=== PATIENT | female | born 1950 | race Two or more races ===

== ENCOUNTER 2023-09-28 10:55 | Outpatient (AMB) | payer MEDICARE, SELFPAY ==
--- NOTE | 2023-09-28 11:07 | HO.NEPHOV ---
HPI HPI Comments History of Present Illness Details I had the privilege of seeing Sera in follow-up of her chronic kidney disease on a background of hypertension. She has history of longstanding hypertension for close to 25 years. She has been taking prednisone for her rheumatological disorders. Her blood sugar control is labile but stable. She is on LANE-inhibitor. She denies any chest pain, shortness of breath, proximal nocturnal dyspnea, orthopnea, pedal edema or orthostatic symptoms. She is known to have proteinuria. Her oldest sister has history of ESRD. There were no new active complaints at the time this office visit. [facility] Medical History (Updated 09/28/23 @ 12:55 by Daryl Black MD) Hyperlipidemia Malaise and fatigue Iron deficiency anemia Hypothyroidism Essential (primary) hypertension Type 2 diabetes mellitus Surgical History Hx of laparoscopic gastric banding History of hysterectomy Family History Mother Hypertension Stroke Heart disease Father Cancer Sister Cancer Diabetes Hypertension Kidney disease Brother Cancer Diabetes Social History Alcohol intake: never Patient Tobacco Use Status: Never used Tobacco Vital Signs 09/28/23 11:09 Height 5 ft 3 in Weight 255 lb 4 oz BMI 45.2 BP 98/60 Blood Pressure Location Lt brachial Position Sitting Pulse 76 Pulse Source Pulse Oximeter Pulse Oximetry (%) 96 Oxygen Delivery Method Room Air Physical Exam Vital Signs: Last Vital Signs Pulse 76 09/28/23 11:09 BP 98/60 09/28/23 11:09 Pulse Ox 96 09/28/23 11:09 Oxygen Delivery Method Room Air 09/28/23 11:09 BMI result Body Mass Index 45.2 Const Other: On O2 General: comfortable and no acute distress Orientation/consciousness: patient oriented x3 HEENT Head: Yes normocephalic Mouth: Normal oral and palatal mucosa present Eyes EOM: EOMs intact bilaterally Neck Neck: Yes supple Resp Auscultation: clear to auscultation bilaterally Cardio Jugular venous distension: no JVD Rate: regular rate GI Palpation (GI): Soft to palpation Auscultation: normal bowel sounds General: Yes no CVA tenderness Back/Spine/Pelvis Back: no CVA tenderness Skin General skin exam: no rashes or lesions noted Neuro General: patient oriented x3 and moves all extremities Extrem General: Yes no pedal edema Assessment & Plan Assessment & Plan (1) CKD (chronic kidney disease) stage 3, GFR 30-59 ml/min: Code(s): N18.30 - Chronic kidney disease, stage 3 unspecified Qualifiers: Chronic kidney disease stage 3 subtype: stage 3a (GFR 45-59) Qualified Code(s): N18.31 - Chronic kidney disease, stage 3a (2) Essential (primary) hypertension: Code(s): I10 - Essential (primary) hypertension Plan Sera has longstanding hypertension and 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 Her blood pressure has been on the low side and she has intermittent orthostatic symptoms. She has not had any blood work done for a good few months. I reduced her lisinopril to 20 mg daily. She was encouraged to keep up with a low-sodium diet, maintain good hydration and avoid nonsteroidal anti-inflammatories. Her past renal ultrasound did not show any obstruction but just renal cyst. I have ordered blood work in follow-up and plan to initiate her on Jardiance or Farxiga at the next office visit. All questions answered. Follow-up appointment given. Orders: Orders Calcium Today N18.30 - Chronic kidney disease, stage 3 unspecified Electrolytes Today N18.30 - Chronic kidney disease, stage 3 unspecified Blood Urea Nitrogen Today N18.30 - Chronic kidney disease, stage 3 unspecified Creatinine Today N18.30 - Chronic kidney disease, stage 3 unspecified Coding Level of Care Code Est Pt Level 4 (75882) Diagnoses Stage 3a chronic kidney disease N18.31 Chronic kidney disease stage 3 subtype: stage 3a (GFR 45-59) Essential (primary) hypertension I10 Results Reviewed Nephrology Results: No Data to Display
[2023-09-28 11:09] VITALS: BP 98/60; PULSE 76; O2SAT 96; BMI 45.2
== END 2023-09-28 11:46 | disposition home or self-care (01) ==
PROVIDERS: PCP Internal Medicine; Visit Provider Internal Medicine Nephrology
DX: N18.31 Chronic kidney disease, stage 3a (principal); I10 Essential (primary) hypertension
CPT/HCPCS: 99214

== ENCOUNTER → 2023-09-28 10:55 | Outpatient (BNVA) | payer MEDICARE, SELFPAY | PROVIDERS: PCP Internal Medicine; Visit Provider Internal Medicine Nephrology | DX: I12.9 Hypertensive chronic kidney disease with stage 1 through stage 4 chronic kidney disease, or unspecified chronic kidney disease (principal); N18.31 Chronic kidney disease, stage 3a; Z79.899 Other long term (current) drug therapy | CPT/HCPCS: 99212 ==

== ENCOUNTER 2023-10-24 08:50 | Outpatient (REF) | payer MEDICARE, SELFPAY ==
[2023-10-24 14:05] LABS: Anion Gap 13 (12-20); Blood Urea Nitrogen 35 mg/dL (9-16); Calcium 9.5 mg/dL (8.4-10.2); Carbon Dioxide 27 mmol/L (22-29); Chloride 107 mmol/L (96-108); Estimated Glomerular Filt Rate 22; Potassium 4.3 mmol/L (3.3-5.1); Sodium 143 mmol/L (135-145)
== END 2023-10-24 08:51 | disposition home or self-care (01) ==
LOC: HO.HKASLDS 08:50
PROVIDERS: Visit Provider Internal Medicine Nephrology
DX: N18.30 Chronic kidney disease, stage 3 unspecified (principal)
CPT/HCPCS: 36415; 80051; 82310; 82565; 84520

== ENCOUNTER → 2023-10-31 11:15 | Outpatient (BNVA) | payer MEDICARE, SELFPAY | PROVIDERS: PCP Internal Medicine; Visit Provider Internal Medicine Nephrology | DX: I12.9 Hypertensive chronic kidney disease with stage 1 through stage 4 chronic kidney disease, or unspecified chronic kidney disease (principal); N18.31 Chronic kidney disease, stage 3a; D17.0 Benign lipomatous neoplasm of skin and subcutaneous tissue of head, face and neck | CPT/HCPCS: 99212 ==

== ENCOUNTER 2023-10-31 11:24 | Outpatient (AMB) | payer MEDICARE, SELFPAY ==
[2023-10-31 11:23] VITALS: BP 104/70; PULSE 80; O2SAT 95; BMI 45.7
--- NOTE | 2023-10-31 11:23 | HO.NEPHOV ---
HPI HPI Comments History of Present Illness Details I had the privilege of seeing Sera in follow-up of her chronic kidney disease on a background of hypertension. She has history of longstanding hypertension for close to 25 years. She has been taking prednisone for her rheumatological disorders. Her blood sugar control is labile but stable. She has been on LANE-inhibitor, the dose of which has been reduced to 20 mg at the last visit. She denies any chest pain, shortness of breath, proximal nocturnal dyspnea, orthopnea, pedal edema or orthostatic symptoms. She is known to have proteinuria. Her oldest sister has history of ESRD. There were no new active complaints at the time this office visit. [facility] Medical History (Updated 10/31/23 @ 11:50 by Daryl Black MD) Hyperlipidemia Malaise and fatigue Iron deficiency anemia Hypothyroidism Essential (primary) hypertension Type 2 diabetes mellitus Surgical History Hx of laparoscopic gastric banding History of hysterectomy Family History Mother Hypertension Stroke Heart disease Father Cancer Sister Cancer Diabetes Hypertension Kidney disease Brother Cancer Diabetes Social History Alcohol intake: never Patient Tobacco Use Status: Never used Tobacco Vital Signs 10/31/23 11:23 Height 5 ft 3 in Weight 258 lb BMI 45.7 BP 104/70 Blood Pressure Location Lt brachial Position Sitting Pulse 80 Pulse Source Pulse Oximeter Pulse Oximetry (%) 95 Oxygen Delivery Method Room Air Physical Exam Vital Signs: Last Vital Signs Pulse 80 10/31/23 11:23 BP 104/70 10/31/23 11:23 Pulse Ox 95 10/31/23 11:23 Oxygen Delivery Method Room Air 10/31/23 11:23 BMI result Body Mass Index 45.7 Const General: comfortable and no acute distress Orientation/consciousness: patient oriented x3 HEENT Head: Yes normocephalic Mouth: Normal oral and palatal mucosa present Eyes EOM: EOMs intact bilaterally Neck Neck: Yes supple Resp Auscultation: clear to auscultation bilaterally Cardio Jugular venous distension: no JVD Rate: regular rate GI Palpation (GI): Soft to palpation Auscultation: normal bowel sounds General: Yes no CVA tenderness Back/Spine/Pelvis Back: no CVA tenderness Skin General skin exam: no rashes or lesions noted Neuro General: patient oriented x3 and moves all extremities Extrem General: Yes no pedal edema Assessment & Plan Assessment & Plan (1) Essential (primary) hypertension: Code(s): I10 - Essential (primary) hypertension (2) CKD (chronic kidney disease) stage 3, GFR 30-59 ml/min: Code(s): N18.30 - Chronic kidney disease, stage 3 unspecified Qualifiers: Chronic kidney disease stage 3 subtype: stage 3a (GFR 45-59) Qualified Code(s): N18.31 - Chronic kidney disease, stage 3a (3) Lipoma: Code(s): D17.9 - Benign lipomatous neoplasm, unspecified Qualifiers: Lipoma location: neck Qualified Code(s): D17.0 - Benign lipomatous neoplasm of skin and subcutaneous tissue of head, face and neck Claus Zamora has longstanding hypertension and 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 Her blood pressure has been on the low side and she has intermittent orthostatic symptoms. She had a recent serum creatinine of 2.1 now . I held her lisinopril . She was encouraged to keep up with a low-sodium diet, maintain good hydration and avoid nonsteroidal anti-inflammatories. Her past renal ultrasound did not show any obstruction but just renal cyst. I have ordered blood work in follow-up and plan to initiate her on Jardiance or Farxiga with time. She has a lipoma on the nape of the neck for which she is going to see a surgeon. All questions answered. Follow-up appointment given. Orders: Orders Creatinine Today I10 - Essential (primary) hypertension, N18.30 - Chronic kidney disease, stage 3 unspecified Creatinine 6 Weeks I10 - Essential (primary) hypertension, N18.30 - Chronic kidney disease, stage 3 unspecified Electrolytes 6 Weeks I10 - Essential (primary) hypertension, N18.30 - Chronic kidney disease, stage 3 unspecified Blood Urea Nitrogen Today I10 - Essential (primary) hypertension, N18.30 - Chronic kidney disease, stage 3 unspecified Electrolytes Today I10 - Essential (primary) hypertension, N18.30 - Chronic kidney disease, stage 3 unspecified Blood Urea Nitrogen 6 Weeks I10 - Essential (primary) hypertension, N18.30 - Chronic kidney disease, stage 3 unspecified Referrals General Surgery Referral D17.9 - Benign lipomatous neoplasm, unspecified Coding Level of Care Code Est Pt Level 4 (95211) Diagnoses Essential (primary) hypertension I10 Stage 3a chronic kidney disease N18.31 Chronic kidney disease stage 3 subtype: stage 3a (GFR 45-59) Lipoma of neck D17.0 Lipoma location: neck Results Reviewed Nephrology Results: Sodium 143 mmol/L (135-145) 10/24/23 Potassium 4.3 mmol/L (3.3-5.1) 10/24/23 Chloride 107 mmol/L (96-108) 10/24/23 Carbon Dioxide 27 mmol/L (22-29) 10/24/23 BUN 35 mg/dL (9-16) H 10/24/23 Creatinine 2.18 mg/dL (0.5-1.4) H 10/24/23 Calcium 9.5 mg/dL (8.4-10.2) 10/24/23
== END 2023-10-31 11:55 | disposition home or self-care (01) ==
PROVIDERS: PCP Internal Medicine; Visit Provider Internal Medicine Nephrology
DX: I10 Essential (primary) hypertension (principal); N18.31 Chronic kidney disease, stage 3a; D17.0 Benign lipomatous neoplasm of skin and subcutaneous tissue of head, face and neck
CPT/HCPCS: 99214

== ENCOUNTER 2023-11-15 10:29 | Outpatient (AMB) | payer MEDICARE, SELFPAY ==
--- NOTE | 2023-11-15 10:55 | A.OFFVIS_ITS ---
Intake Vital Signs 11/15/23 11:02 Height 5 ft 3 in Weight 257 lb BMI 45.5 BP 145/65 H Blood Pressure Location Rt brachial Position Sitting Pulse 99 Intake Visit Reasons: Lipoma~ Lt post neck Intake Note: This patient presents for an assessment for Lipoma of the left posterior neck. Pt c/o; reports feeling pressure sensation, left posterior neck. 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 Accompanied by: Self / Same As Patient Allergies Egg Derived Allergy (Verified 11/15/23 11:01) Unknown Iodinated Contrast Media Allergy (Verified 11/15/23 11:01) Unknown Medication List - Last Reconciled 11/15/23 by Yony Bronson MD albuterol sulfate 90 mcg/actuation inhalation amlodipine 5 mg PO DAILY aspirin 81 mg PO DAILY atorvastatin 40 mg PO DAILY makefvmninx-eaxzhuiwq-glretxqz 100-62.5-25 mcg (Trelegy Ellipta) 1 ea inhalation DAILY hydroxychloroquine 200 mg PO BID insulin glargine (Lantus Solostar U-100 Insulin) units subcut levothyroxine mcg PO metoprolol succinate ER 100 mg PO DAILY metoprolol succinate ER 50 mg PO DAILY omeprazole 20 mg PO DAILY pen needle, diabetic (BD Ultra-Fine Mini Pen Needle) As directed prednisone 10 mg PO DAILY prednisone 3 mg PO DAILY sertraline 150 mg PO DAILY torsemide 20 mg PO DAILY HPI Lipoma~ Lt post neck HPI Details 73-year-old female referred for a lipoma on the posterior neck. She has noticed this lump on the posterior neck to the left about 3 years. This has been increasing in size. She says that has been causing her discomfort and wants this removed. She denies any drainage or skin changes. She has known COPD and uses O2 supplementation frequently. [facility] Medical History Lipoma of neck Hyperlipidemia Malaise and fatigue Iron deficiency anemia Hypothyroidism Essential (primary) hypertension Type 2 diabetes mellitus Surgical History Hx of laparoscopic gastric banding History of hysterectomy Family History Mother Hypertension Stroke Heart disease Father Cancer Sister Cancer Diabetes Hypertension Kidney disease Brother Cancer Diabetes Social History Alcohol intake: never Patient Tobacco Use Status: Never used Tobacco Review of Systems Const Details: Using a cane to ambulate Denies chills and Denies fever(s) Card Denies chest pain, Reports dyspnea and Reports dyspnea on exertion Resp Denies cough, Reports dyspnea and Reports dyspnea on exertion GI Denies hematochezia and Denies change in bowel habits Denies hematuria Musc Denies back pain and Denies limited range of motion Neuro Denies focal weakness and Denies convulsions Psych Denies depression and Denies mood swings Physical Exam Const Other: Morbidly obese, appears a little short of breath, using a cane to ambulate General: comfortable and no acute distress Orientation/consciousness: patient oriented x3 Neck Other: Left posterior neck - lipomatous mass, about 4 cm in diameter, mobile, well- defined Neck: Yes no lymphadenopathy Resp Auscultation: clear to auscultation bilaterally Cardio Rhythm: regular rhythm GI Palpation (GI): Soft to palpation, nontender and no guarding Neuro General: patient oriented x3 Assessment & Plan Assessment & Plan (1) Lipoma of neck: Code(s): D17.0 - Benign lipomatous neoplasm of skin and subcutaneous tissue of head, face and neck Plan: I explained to her the technique of excision. I reviewed the risks including but not limited to bleeding and infections, as well as the benefits and alternatives. She understands and wants to proceed. She says she wants this done under local anesthesia. This will be scheduled at the minor procedure room. Coding Level of Care Code New Pt Level 3 (60125) Diagnoses Lipoma of neck D17.0
[2023-11-15 11:02] VITALS: BP 145/65; PULSE 99; BMI 45.5
== END 2023-11-15 11:09 | disposition home or self-care (01) ==
PROVIDERS: PCP Internal Medicine; Visit Provider Surgery
DX: D17.0 Benign lipomatous neoplasm of skin and subcutaneous tissue of head, face and neck (principal)
CPT/HCPCS: 99203

== ENCOUNTER → 2023-11-15 10:29 | Outpatient (BNVA) | payer MEDICARE, SELFPAY | PROVIDERS: PCP Internal Medicine; Visit Provider Surgery | DX: D17.0 Benign lipomatous neoplasm of skin and subcutaneous tissue of head, face and neck (principal) | CPT/HCPCS: 99202 ==

== ENCOUNTER 2023-11-29 10:30 | Outpatient (REF) | payer MEDICARE, SELFPAY ==
[2023-11-29 10:39] VITALS: BP 153/66; PULSE 77; RESP 20; TEMP 36.4; O2SAT 92; BMI 44.3
--- NOTE | 2023-11-29 11:02 | W.PM.OPN ---
Operative Note Operative Note Date of Service: 11/29/23 Narrative: Preop diagnosis: Lipoma, posterior neck Postop diagnosis: Lipoma,posterior neck Procedure: Excision of lipoma posterior neck under local anesthesia Surgeon: Yony Bronson MD The patient is a 73 year female with a lipomatous mass on the posterior neck. This was about a 2.5 cm lipoma. She understood the technique of excision under local anesthesia and was aware of the risks, benefits, and alternatives. She was brought to the minor procedure room. She was placed in prone position. The neck was hyperextended to expose the lipoma on the posterior neck. This area was prepped and draped. Lidocaine 1% was used for local anesthesia. A surgical time-out had been done. I then made an incision on the skin transversely overlying the lipoma. This was made using blade 15. This carried down through the full-thickness of the skin until a lipomatous masses this visualized. I sharply dissected the lipoma off of the rest of the subcutaneous layer. This lipoma was very immature and seemed to fall apart easily. We were able to remove the lipoma from the area completely. We closed the incision with full-thickness nylon 3-0 interrupted sutures. Dressings were applied. The procedure was completed The patient tolerated the procedure well. There were no immediate complications. She was given wound care instructions. She will be seen in the office for removal sutures. There was minimal blood loss.
== END 2023-11-29 10:31 | disposition home or self-care (01) ==
LOC: HO.MS 10:30
PROVIDERS: Visit Provider Surgery
PROC: (CPT 11423; principal; 2023-11-29 10:30)
DX: D17.9 Benign lipomatous neoplasm, unspecified (principal)
CPT/HCPCS: 11423; 88304

== ENCOUNTER → 2023-11-29 10:30 | Outpatient (BNV) | payer MEDICARE, SELFPAY | PROVIDERS: Visit Provider Surgery | DX: D17.0 Benign lipomatous neoplasm of skin and subcutaneous tissue of head, face and neck (principal) | CPT/HCPCS: 21555 ==

== ENCOUNTER 2023-12-13 10:32 | Outpatient (AMB) | payer MEDICARE, SELFPAY ==
--- NOTE | 2023-12-13 10:32 | A.OFFVIS_ITS ---
Intake Visit Reasons: S/P excision lipoma Lt. posterior neck Intake Note: This patient presents for a post-op S/P excision lipoma Lt. posterior neck. Pt c/o; reports no complaints. Manager Emergency Department Required: No Accompanied by: Self / Same As Patient Allergies Egg Derived Allergy (Verified 12/13/23 10:41) Unknown Iodinated Contrast Media Allergy (Verified 12/13/23 10:41) Unknown HPI HPI S/P excision lipoma Lt. posterior neck: Details: She underwent excision of a lipoma from the neck last November 28 under local anesthesia. She tolerated the procedure well. She currently denies complaints. [facility] Medical History Lipoma of neck Hyperlipidemia Malaise and fatigue Iron deficiency anemia Hypothyroidism Essential (primary) hypertension Type 2 diabetes mellitus Surgical History Status post excision of lipoma (~11/29/23) Hx of laparoscopic gastric banding History of hysterectomy Family History Mother Hypertension Stroke Heart disease Father Cancer Sister Cancer Diabetes Hypertension Kidney disease Brother Cancer Diabetes Social History Alcohol intake: never Patient Tobacco Use Status: Never used Tobacco Review of Systems Const Denies chills and Denies fever(s) Card Denies chest pain, Denies dyspnea and Denies dyspnea on exertion Resp Denies cough, Denies dyspnea and Denies dyspnea on exertion GI Denies hematochezia and Denies change in bowel habits Denies hematuria Musc Denies back pain and Denies limited range of motion Neuro Denies focal weakness and Denies convulsions Psych Denies depression and Denies mood swings Physical Exam Const General: comfortable and no acute distress Neck Other: Excision site is well healed, not infected Assessment & Plan Assessment & Plan (1) Lipoma of neck: Code(s): D17.0 - Benign lipomatous neoplasm of skin and subcutaneous tissue of head, face and neck Category: Medical Plan: Status post excision. Her incision is well healed. I removed all her sutures. Her path report shows a lipoma. She can follow up on a p.r.n. basis. Coding Level of Care Code Global (22752) Diagnoses Lipoma of neck D17.0
== END 2023-12-13 10:44 | disposition home or self-care (01) ==
PROVIDERS: PCP Internal Medicine; Visit Provider Surgery
DX: D17.0 Benign lipomatous neoplasm of skin and subcutaneous tissue of head, face and neck (principal)
CPT/HCPCS: 99024

== ENCOUNTER → 2023-12-13 10:32 | Outpatient (BNVA) | payer MEDICARE, SELFPAY | PROVIDERS: PCP Internal Medicine; Visit Provider Surgery | DX: D17.0 Benign lipomatous neoplasm of skin and subcutaneous tissue of head, face and neck (principal) | CPT/HCPCS: 99212 ==

== ENCOUNTER 2023-12-19 08:38 | Outpatient (REF) | payer MEDICARE, SELFPAY ==
[2023-12-19 17:30] LABS: Anion Gap 16 (12-20); Blood Urea Nitrogen 18 mg/dL (9-16); Carbon Dioxide 26 mmol/L (22-29); Chloride 101 mmol/L (96-108); Estimated Glomerular Filt Rate 25; Potassium 3.8 mmol/L (3.3-5.1); Sodium 139 mmol/L (135-145)
== END 2023-12-19 08:39 | disposition home or self-care (01) ==
LOC: HO.HKASLDS 08:38
PROVIDERS: Visit Provider Internal Medicine Nephrology
DX: I12.9 Hypertensive chronic kidney disease with stage 1 through stage 4 chronic kidney disease, or unspecified chronic kidney disease (principal); N18.30 Chronic kidney disease, stage 3 unspecified
CPT/HCPCS: 36415; 80051; 82565; 84520

== ENCOUNTER 2023-12-28 09:58 | Outpatient (AMB) | payer MEDICARE, SELFPAY ==
--- NOTE | 2023-12-28 10:00 | HO.NEPHOV_ITS ---
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 She has history of longstanding hypertension for close to 25 years. She has been taking prednisone for her rheumatological disorders. Her blood sugar control is labile but stable. She has been on LANE- inhibitor. She denies any chest pain, proximal nocturnal dyspnea, orthopnea or orthostatic symptoms. She is known to have proteinuria. Her oldest sister has history of ESRD. She has been having weight gain with edema with worsening SOB at that time. [facility] Medical History Lipoma of neck Hyperlipidemia Malaise and fatigue Iron deficiency anemia Hypothyroidism Essential (primary) hypertension Type 2 diabetes mellitus Surgical History Status post excision of lipoma (~11/29/23) Hx of laparoscopic gastric banding History of hysterectomy Family History Mother Hypertension Stroke Heart disease Father Cancer Sister Cancer Diabetes Hypertension Kidney disease Brother Cancer Diabetes Social History Alcohol intake: never Patient Tobacco Use Status: Never used Tobacco Physical Exam Vital Signs: Last Vital Signs Pulse 78 12/28/23 10:02 BP 130/72 12/28/23 10:02 Pulse Ox 96 12/28/23 10:02 Oxygen Delivery Method Room Air 12/28/23 10:02 BMI result Body Mass Index 46.5 Const General: comfortable and no acute distress Orientation/consciousness: patient oriented x3 HEENT Head: Yes normocephalic Mouth: Normal oral and palatal mucosa present Eyes EOM: EOMs intact bilaterally Neck Neck: Yes supple Resp Auscultation: clear to auscultation bilaterally Cardio Jugular venous distension: no JVD Rate: regular rate GI Palpation (GI): Soft to palpation Auscultation: normal bowel sounds General: Yes no CVA tenderness Back/Spine/Pelvis Back: no CVA tenderness Skin General skin exam: no rashes or lesions noted Neuro General: patient oriented x3 and moves all extremities Extrem General: Yes edema Results Reviewed Nephrology Results: Sodium 139 mmol/L (135-145) 12/19/23 Potassium 3.8 mmol/L (3.3-5.1) 12/19/23 Chloride 101 mmol/L (96-108) 12/19/23 Carbon Dioxide 26 mmol/L (22-29) 12/19/23 BUN 18 mg/dL (9-16) H 12/19/23 Creatinine 1.96 mg/dL (0.5-1.4) H 12/19/23 Calcium 9.5 mg/dL (8.4-10.2) 10/24/23 Assessment & Plan Assessment & Plan (1) CKD (chronic kidney disease) stage 3, GFR 30-59 ml/min: Code(s): N18.30 - Chronic kidney disease, stage 3 unspecified Category: Medical Qualifiers: Chronic kidney disease stage 3 subtype: stage 3a (GFR 45-59) Qualified Code(s): N18.31 - Chronic kidney disease, stage 3a (2) Essential (primary) hypertension: Code(s): I10 - Essential (primary) hypertension Category: Medical Plan Sera has longstanding hypertension and 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 Her blood pressure has been on the low side and she had intermittent orthostatic symptoms with serum creatinine going up to 2.1 which has improved after I held her lisinopril . She was encouraged to keep up with a low-sodium diet, maintain good hydration and avoid nonsteroidal anti-inflammatories. I increased her torsemide to 40 mg alternating with 20 mg every other day. Her past renal ultrasound did not show any obstruction but just renal cyst. I have ordered blood work in follow-up and plan to initiate her on Jardiance or Farxiga with time. All questions answered. Follow-up appointment given. Orders: Orders Creatinine Today I10 - Essential (primary) hypertension, N18.31 - Chronic kidney disease, stage 3a Blood Urea Nitrogen Today I10 - Essential (primary) hypertension, N18.31 - Chronic kidney disease, stage 3a Electrolytes Today I10 - Essential (primary) hypertension, N18.31 - Chronic kidney disease, stage 3a Coding Level of Care Code Est Pt Level 4 (42237) Diagnoses Stage 3a chronic kidney disease N18.31 Chronic kidney disease stage 3 subtype: stage 3a (GFR 45-59) Essential (primary) hypertension I10
[2023-12-28 10:02] VITALS: BP 130/72; PULSE 78; O2SAT 96; BMI 46.5
== END 2023-12-28 10:57 | disposition home or self-care (01) ==
PROVIDERS: PCP Internal Medicine; Visit Provider Internal Medicine Nephrology
DX: N18.31 Chronic kidney disease, stage 3a (principal); I10 Essential (primary) hypertension
CPT/HCPCS: 99214

== ENCOUNTER → 2023-12-28 09:58 | Outpatient (BNVA) | payer MEDICARE, SELFPAY | PROVIDERS: PCP Internal Medicine; Visit Provider Internal Medicine Nephrology | DX: I12.9 Hypertensive chronic kidney disease with stage 1 through stage 4 chronic kidney disease, or unspecified chronic kidney disease (principal); N18.31 Chronic kidney disease, stage 3a | CPT/HCPCS: 99212 ==

== ENCOUNTER 2024-01-30 10:13 | Outpatient (REF) | payer MEDICARE, SELFPAY ==
[2024-01-30 18:53] LABS: Anion Gap 15 (12-20); Blood Urea Nitrogen 23 mg/dL (9-16); Carbon Dioxide 25 mmol/L (22-29); Chloride 106 mmol/L (96-108); Estimated Glomerular Filt Rate 32; Potassium 3.3 mmol/L (3.3-5.1); Sodium 143 mmol/L (135-145)
== END 2024-01-30 10:14 | disposition home or self-care (01) ==
LOC: HO.HKASLDS 10:13
PROVIDERS: Visit Provider Internal Medicine Nephrology
DX: I10 Essential (primary) hypertension (principal); N18.30 Chronic kidney disease, stage 3 unspecified
CPT/HCPCS: 36415; 80051; 82565; 84520

== ENCOUNTER 2024-02-06 10:30 | Outpatient (AMB) | payer MEDICARE, SELFPAY ==
--- NOTE | 2024-02-06 10:46 | HO.NEPHOV_ITS ---
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 She has history of longstanding hypertension for close to 25 years. She has been taking prednisone for her rheumatological disorders. Her blood sugar control is labile but stable. She has been on LANE-inhibitor. She denies any chest pain, proximal nocturnal dyspnea, orthopnea or orthostatic symptoms. She is known to have proteinuria. Her oldest sister has history of ESRD. [facility] Medical History Lipoma of neck Hyperlipidemia Malaise and fatigue Iron deficiency anemia Hypothyroidism Essential (primary) hypertension Type 2 diabetes mellitus Surgical History Status post excision of lipoma (~11/29/23) Hx of laparoscopic gastric banding History of hysterectomy Family History Mother Hypertension Stroke Heart disease Father Cancer Sister Cancer Diabetes Hypertension Kidney disease Brother Cancer Diabetes Social History Alcohol intake: never Patient Tobacco Use Status: Never used Tobacco Physical Exam Vital Signs: Last Vital Signs Pulse 72 02/06/24 10:49 BP 124/70 02/06/24 10:49 Pulse Ox 94 02/06/24 10:49 Oxygen Delivery Method Room Air 02/06/24 10:49 BMI result Body Mass Index 46.5 Const General: comfortable and no acute distress Orientation/consciousness: patient oriented x3 HEENT Head: Yes normocephalic Mouth: Normal oral and palatal mucosa present Eyes EOM: EOMs intact bilaterally Neck Neck: Yes supple Resp Auscultation: clear to auscultation bilaterally Cardio Jugular venous distension: no JVD Rate: regular rate GI Palpation (GI): Soft to palpation Auscultation: normal bowel sounds General: Yes no CVA tenderness Back/Spine/Pelvis Back: no CVA tenderness Skin General skin exam: no rashes or lesions noted Neuro General: patient oriented x3 and moves all extremities Results Reviewed Nephrology Results: Sodium 143 mmol/L (135-145) 01/30/24 Potassium 3.3 mmol/L (3.3-5.1) 01/30/24 Chloride 106 mmol/L (96-108) 01/30/24 Carbon Dioxide 25 mmol/L (22-29) 01/30/24 BUN 23 mg/dL (9-16) H 01/30/24 Creatinine 1.60 mg/dL (0.5-1.4) H 01/30/24 Calcium 9.5 mg/dL (8.4-10.2) 10/24/23 Assessment & Plan Assessment & Plan (1) CKD (chronic kidney disease) stage 3, GFR 30-59 ml/min: Code(s): N18.30 - Chronic kidney disease, stage 3 unspecified Category: Medical Qualifiers: Chronic kidney disease stage 3 subtype: stage 3a (GFR 45-59) Qualified Code(s): N18.31 - Chronic kidney disease, stage 3a (2) Essential (primary) hypertension: Code(s): I10 - Essential (primary) hypertension Category: Medical Plan Sera has longstanding hypertension and 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 Her blood pressure had been on the low side and she had intermittent orthostatic symptoms with serum creatinine going up to 2.1 which has improved after I held her lisinopril . She was encouraged to keep up with a low-sodium diet, maintain good hydration and avoid nonsteroidal anti-inflammatories. She should conitnue torsemide 40 mg alternating with 20 mg every other day. Her past renal ultrasound did not show any obstruction but just renal cyst. I have ordered blood work in follow-up and plan to initiate her on Jardiance or Farxiga with time. All questions answered. Follow-up appointment given. Orders: Orders Creatinine Today I10 - Essential (primary) hypertension, N18.31 - Chronic kidney disease, stage 3a Electrolytes Today I10 - Essential (primary) hypertension, N18.31 - Chronic kidney disease, stage 3a Blood Urea Nitrogen Today I10 - Essential (primary) hypertension, N18.31 - Chronic kidney disease, stage 3a Cortisol Random Today I10 - Essential (primary) hypertension, N18.31 - Chronic kidney disease, stage 3a Coding Level of Care Code Est Pt Level 4 (67226) Diagnoses Stage 3a chronic kidney disease N18.31 Chronic kidney disease stage 3 subtype: stage 3a (GFR 45-59) Essential (primary) hypertension I10
[2024-02-06 10:49] VITALS: BP 124/70; PULSE 72; O2SAT 94; BMI 46.5
== END 2024-02-06 11:06 | disposition home or self-care (01) ==
PROVIDERS: PCP Internal Medicine; Visit Provider Internal Medicine Nephrology
DX: N18.31 Chronic kidney disease, stage 3a (principal); I10 Essential (primary) hypertension
CPT/HCPCS: 99214

== ENCOUNTER → 2024-02-06 10:30 | Outpatient (BNVA) | payer MEDICARE, SELFPAY | PROVIDERS: PCP Internal Medicine; Visit Provider Internal Medicine Nephrology | DX: I12.9 Hypertensive chronic kidney disease with stage 1 through stage 4 chronic kidney disease, or unspecified chronic kidney disease (principal); N18.31 Chronic kidney disease, stage 3a; Z79.899 Other long term (current) drug therapy | CPT/HCPCS: 99212 ==

== ENCOUNTER 2024-04-25 11:55 | Outpatient (REF) | payer MEDICARE, SELFPAY ==
[2024-04-25 18:22] LABS: Anion Gap 15 (12-20); Blood Urea Nitrogen 23 mg/dL (9-16); Carbon Dioxide 28 mmol/L (22-29); Chloride 101 mmol/L (96-108); Estimated Glomerular Filt Rate 24; Potassium 3.9 mmol/L (3.3-5.1); Sodium 140 mmol/L (135-145)
[2024-04-25 18:32] LABS: Cortisol Random 6.4 ug/dL
== END 2024-04-25 11:56 | disposition home or self-care (01) ==
LOC: HO.HKASLDS 11:55
PROVIDERS: Visit Provider Internal Medicine Nephrology
DX: I12.9 Hypertensive chronic kidney disease with stage 1 through stage 4 chronic kidney disease, or unspecified chronic kidney disease (principal); N18.31 Chronic kidney disease, stage 3a
CPT/HCPCS: 36415; 80051; 82533; 82565; 84520

== ENCOUNTER 2024-05-02 10:41 | Outpatient (AMB) | payer MEDICARE, SELFPAY ==
--- NOTE | 2024-05-02 11:18 | HO.NEPHOV ---
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 She has history of longstanding hypertension for close to 25 years. She has been taking prednisone for her rheumatological disorders. Her blood sugar control is labile but stable. She has been on LANE-inhibitor. She denies any chest pain, proximal nocturnal dyspnea, orthopnea or orthostatic symptoms. She is known to have proteinuria. Her oldest sister has history of ESRD PFSH Medical History Lipoma of neck Hyperlipidemia Malaise and fatigue Iron deficiency anemia Hypothyroidism Essential (primary) hypertension Type 2 diabetes mellitus Surgical History Status post excision of lipoma (~11/29/23) Hx of laparoscopic gastric banding History of hysterectomy Family History Mother Hypertension Stroke Heart disease Father Cancer Sister Cancer Diabetes Hypertension Kidney disease Brother Cancer Diabetes Social History Alcohol intake: never Patient Tobacco Use Status: Never used Tobacco Review of Systems Const All systems reviewed & are unremarkable except as noted in HPI and below Physical Exam Vital Signs: Last Vital Signs Pulse 67 05/02/24 11:19 BP 124/70 05/02/24 11:19 Pulse Ox 97 05/02/24 11:19 Oxygen Delivery Method Room Air 05/02/24 11:19 BMI result Body Mass Index 42.7 Const General: comfortable and no acute distress Orientation/consciousness: patient oriented x3 HEENT Head: Yes normocephalic Mouth: Normal oral and palatal mucosa present Eyes EOM: EOMs intact bilaterally Neck Neck: Yes supple Resp Auscultation: clear to auscultation bilaterally Cardio Jugular venous distension: no JVD Rate: regular rate GI Palpation (GI): Soft to palpation Auscultation: normal bowel sounds General: Yes no CVA tenderness Back/Spine/Pelvis Back: no CVA tenderness Skin General skin exam: no rashes or lesions noted Neuro General: patient oriented x3 and moves all extremities Extrem General: Yes no pedal edema Results Reviewed Nephrology Results: Sodium 140 mmol/L (135-145) 04/25/24 Potassium 3.9 mmol/L (3.3-5.1) 04/25/24 Chloride 101 mmol/L (96-108) 04/25/24 Carbon Dioxide 28 mmol/L (22-29) 04/25/24 BUN 23 mg/dL (9-16) H 04/25/24 Creatinine 2.00 mg/dL (0.5-1.4) H 04/25/24 Assessment & Plan Assessment & Plan (1) CKD (chronic kidney disease) stage 3, GFR 30-59 ml/min: Code(s): N18.30 - Chronic kidney disease, stage 3 unspecified Category: Medical Qualifiers: Chronic kidney disease stage 3 subtype: stage 3a (GFR 45-59) Qualified Code(s): N18.31 - Chronic kidney disease, stage 3a (2) Essential (primary) hypertension: Code(s): I10 - Essential (primary) hypertension Category: Medical Plan Sera has longstanding hypertension and 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 Her blood pressure had been on the low side and she had intermittent orthostatic symptoms with serum creatinine going up to 2.1 which has improved after I held her lisinopril . She was encouraged to keep up with a low-sodium diet, maintain good hydration and avoid nonsteroidal anti-inflammatories. She should conitnue torsemide 40 mg alternating with 20 mg every other day. Her past renal ultrasound did not show any obstruction but just renal cyst. I plan to start her on Jardiance at the next visit. I have ordered blood work in follow-up. All questions answered. Follow-up appointment given. Coding Level of Care Code Est Pt Level 4 (09410) Diagnoses Stage 3a chronic kidney disease N18.31 Chronic kidney disease stage 3 subtype: stage 3a (GFR 45-59) Essential (primary) hypertension I10
[2024-05-02 11:19] VITALS: BP 124/70; PULSE 67; O2SAT 97; BMI 42.7
== END 2024-05-02 11:51 | disposition home or self-care (01) ==
PROVIDERS: PCP Internal Medicine; Visit Provider Internal Medicine Nephrology
DX: N18.31 Chronic kidney disease, stage 3a (principal); I10 Essential (primary) hypertension
CPT/HCPCS: 99214

== ENCOUNTER → 2024-05-02 10:41 | Outpatient (BNVA) | payer MEDICARE, SELFPAY | PROVIDERS: PCP Internal Medicine; Visit Provider Internal Medicine Nephrology | DX: I12.9 Hypertensive chronic kidney disease with stage 1 through stage 4 chronic kidney disease, or unspecified chronic kidney disease (principal); N18.31 Chronic kidney disease, stage 3a | CPT/HCPCS: 99212 ==

== ENCOUNTER 2024-07-26 09:58 | Outpatient (REF) | payer MEDICARE, SELFPAY ==
[2024-07-26 11:33] LABS: Anion Gap 13 (12-20); Blood Urea Nitrogen 11 mg/dL (9-16); Carbon Dioxide 23 mmol/L (22-29); Chloride 108 mmol/L (96-108); Estimated Glomerular Filt Rate 37; Potassium 3.8 mmol/L (3.3-5.1); Sodium 140 mmol/L (135-145)
== END 2024-07-26 09:59 | disposition home or self-care (01) ==
LOC: HO.LAB 09:58
PROVIDERS: PCP Internal Medicine; Visit Provider Internal Medicine Nephrology
DX: I10 Essential (primary) hypertension (principal); N18.31 Chronic kidney disease, stage 3a
CPT/HCPCS: 36415; 80051; 82565; 84520

== ENCOUNTER 2024-08-01 10:33 | Outpatient (AMB) | payer MEDICARE, SELFPAY ==
--- NOTE | 2024-08-01 10:55 | HO.NEPHOV ---
Vital Signs 08/01/24 10:57 Height 5 ft 3 in Weight 241 lb BMI 42.7 BP 144/80 H Blood Pressure Location Lt brachial Position Sitting Pulse 61 Pulse Source Pulse Oximeter Pulse Oximetry (%) 97 Oxygen Delivery Method Room Air Intake Visit Reasons: 3mon follow up-[facility] Acid Filler Required: No Accompanied by: Self / Same As Patient Allergies Egg Derived Allergy (Verified 08/01/24 10:58) Unknown Iodinated Contrast Media Allergy (Verified 08/01/24 10:58) Unknown HPI Comments Details: Sera was seen in follow-up of her chronic kidney disease on a background of hypertension. She has history of longstanding hypertension for close to 25 years. She has been taking prednisone for her rheumatological disorders. Her blood sugar control is stable. She has been on LANE-inhibitor. She denies any chest pain, proximal nocturnal dyspnea, orthopnea or orthostatic symptoms. She is known to have proteinuria. Her oldest sister has history of ESRD PFSH Medical History Lipoma of neck Hyperlipidemia Malaise and fatigue Iron deficiency anemia Hypothyroidism Essential (primary) hypertension Type 2 diabetes mellitus Surgical History Status post excision of lipoma (~11/29/23) Hx of laparoscopic gastric banding History of hysterectomy Family History Mother Hypertension Stroke Heart disease Father Cancer Sister Cancer Diabetes Hypertension Kidney disease Brother Cancer Diabetes Social History Alcohol intake: never Patient Tobacco Use Status: Never used Tobacco Physical Exam Vital Signs: Last Vital Signs Pulse 61 08/01/24 10:57 BP 144/80 H 08/01/24 10:57 Pulse Ox 97 08/01/24 10:57 Oxygen Delivery Method Room Air 08/01/24 10:57 BMI result Body Mass Index 42.7 Const General: comfortable and no acute distress Orientation/consciousness: patient oriented x3 HEENT Head: Yes normocephalic Mouth: Normal oral and palatal mucosa present Eyes EOM: EOMs intact bilaterally Neck Neck: Yes supple Resp Auscultation: clear to auscultation bilaterally Cardio Jugular venous distension: no JVD Rate: regular rate GI Palpation (GI): Soft to palpation Auscultation: normal bowel sounds General: Yes no CVA tenderness Back/Spine/Pelvis Back: no CVA tenderness Skin General skin exam: no rashes or lesions noted Neuro General: patient oriented x3 and moves all extremities Extrem General: Yes no pedal edema Results Reviewed Nephrology Results: Sodium 140 mmol/L (135-145) 07/26/24 Potassium 3.8 mmol/L (3.3-5.1) 07/26/24 Chloride 108 mmol/L (96-108) 07/26/24 Carbon Dioxide 23 mmol/L (22-29) 07/26/24 BUN 11 mg/dL (9-16) 07/26/24 Creatinine 1.39 mg/dL (0.5-1.4) 07/26/24 Assessment & Plan Assessment & Plan (1) CKD (chronic kidney disease) stage 3, GFR 30-59 ml/min: Code(s): N18.30 - Chronic kidney disease, stage 3 unspecified Category: Medical Qualifiers: Chronic kidney disease stage 3 subtype: stage 3a (GFR 45-59) Qualified Code(s): N18.31 - Chronic kidney disease, stage 3a (2) Essential (primary) hypertension: Code(s): I10 - Essential (primary) hypertension Category: Medical Plan Sera has longstanding hypertension and 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 Her blood pressure was on the low side and she had intermittent orthostatic symptoms with serum creatinine going up to 2.1 which has improved to baseline after I held her lisinopril . She was encouraged to keep up with a low-sodium diet, maintain good hydration and avoid nonsteroidal anti-inflammatories. She should continue torsemide 40 mg alternating with 20 mg every other day. Her past renal ultrasound did not show any obstruction but just renal cyst. I started her on Jardiance 10 mg today. If her renal function is stable , I plan to start her on lisinopril 2.5 mg daily at next visit. I have ordered blood work in follow-up. All questions answered. Follow-up appointment given. Orders: Orders Creatinine 2 Months I10 - Essential (primary) hypertension, N18.31 - Chronic kidney disease, stage 3a Blood Urea Nitrogen 2 Months I10 - Essential (primary) hypertension, N18.31 - Chronic kidney disease, stage 3a Electrolytes 2 Months I10 - Essential (primary) hypertension, N18.31 - Chronic kidney disease, stage 3a Protein Creatinine Ratio, Ur 2 Months I10 - Essential (primary) hypertension, N18.31 - Chronic kidney disease, stage 3a Medications: New empagliflozin (Jardiance) 10 mg PO DAILY 30 tabs 3RF Coding Level of Care Code Est Pt Level 4 (77381) Diagnoses Stage 3a chronic kidney disease N18.31 Chronic kidney disease stage 3 subtype: stage 3a (GFR 45-59) Essential (primary) hypertension I10
[2024-08-01 10:57] VITALS: BP 144/80; PULSE 61; O2SAT 97; BMI 42.7
== END 2024-08-01 11:55 | disposition home or self-care (01) ==
PROVIDERS: PCP Internal Medicine; Visit Provider Internal Medicine Nephrology
DX: N18.31 Chronic kidney disease, stage 3a (principal); I10 Essential (primary) hypertension
CPT/HCPCS: 99214

== ENCOUNTER → 2024-08-01 10:33 | Outpatient (BNVA) | payer MEDICARE, SELFPAY | PROVIDERS: PCP Internal Medicine; Visit Provider Internal Medicine Nephrology | DX: I12.9 Hypertensive chronic kidney disease with stage 1 through stage 4 chronic kidney disease, or unspecified chronic kidney disease (principal); N18.31 Chronic kidney disease, stage 3a | CPT/HCPCS: 99212 ==

== ENCOUNTER 2024-09-25 11:14 | Outpatient (REF) | payer MEDICARE, SELFPAY ==
[2024-09-25 18:52] LABS: Anion Gap 12 (12-20); Blood Urea Nitrogen 18 mg/dL (9-16); Carbon Dioxide 25 mmol/L (22-29); Chloride 104 mmol/L (96-108); Estimated Glomerular Filt Rate 29; Potassium 3.9 mmol/L (3.3-5.1); Sodium 137 mmol/L (135-145)
[2024-09-25 18:59] LABS: Creatinine Urine 171.43 mg/dL; Protein/Creatinine Ratio, Ur 0.33 (<0.2); Total Protein Urine Random 56 mg/dL (<12)
== END 2024-09-25 11:15 | disposition home or self-care (01) ==
LOC: HO.HKASLDS 11:14
PROVIDERS: Visit Provider Internal Medicine Nephrology
DX: I12.9 Hypertensive chronic kidney disease with stage 1 through stage 4 chronic kidney disease, or unspecified chronic kidney disease (principal); N18.31 Chronic kidney disease, stage 3a
CPT/HCPCS: 36415; 80051; 82565; 82570; 84156; 84520

== ENCOUNTER 2024-10-03 10:13 | Outpatient (AMB) | payer MEDICARE, SELFPAY ==
--- NOTE | 2024-10-03 10:21 | HO.NEPHOV ---
Vital Signs 10/03/24 10:22 Height 5 ft 3 in Weight 242 lb 8 oz BMI 43.0 BP 124/80 Blood Pressure Location Lt brachial Position Sitting Pulse 62 Pulse Source Pulse Oximeter Pulse Oximetry (%) 96 Oxygen Delivery Method Room Air Intake Visit Reasons: Follow Up 2 mo/ Conf Radio Personality Required: No Accompanied by: Self / Same As Patient Allergies Egg Derived Allergy (Verified 10/03/24 10:21) Unknown Iodinated Contrast Media Allergy (Verified 10/03/24 10:21) Unknown HPI Comments Details: Sera was seen in follow-up of her chronic kidney disease on a background of hypertension. She has history of longstanding hypertension for close to 25 years. She has been taking prednisone for her rheumatological disorders. Her blood sugar control is stable. She has been on LANE-inhibitor. She denies any chest pain, proximal nocturnal dyspnea, orthopnea or orthostatic symptoms. She is known to have proteinuria. Her oldest sister has history of ESRD PFSH Medical History Lipoma of neck Hyperlipidemia Malaise and fatigue Iron deficiency anemia Hypothyroidism Essential (primary) hypertension Type 2 diabetes mellitus Surgical History Status post excision of lipoma (~11/29/23) Hx of laparoscopic gastric banding History of hysterectomy Family History Mother Hypertension Stroke Heart disease Father Cancer Sister Cancer Diabetes Hypertension Kidney disease Brother Cancer Diabetes Social History Alcohol intake: never Patient Tobacco Use Status: Never used Tobacco Review of Systems Const All systems reviewed & are unremarkable except as noted in HPI and below Physical Exam Vital Signs: Last Vital Signs Pulse 62 10/03/24 10:22 BP 124/80 10/03/24 10:22 Pulse Ox 96 10/03/24 10:22 Oxygen Delivery Method Room Air 10/03/24 10:22 BMI result Body Mass Index 43.0 Const General: comfortable and no acute distress Orientation/consciousness: patient oriented x3 HEENT Head: Yes normocephalic Mouth: Normal oral and palatal mucosa present Eyes EOM: EOMs intact bilaterally Neck Neck: Yes supple Resp Auscultation: clear to auscultation bilaterally Cardio Jugular venous distension: no JVD Rate: regular rate GI Palpation (GI): Soft to palpation Auscultation: normal bowel sounds General: Yes no CVA tenderness Back/Spine/Pelvis Back: no CVA tenderness Skin General skin exam: no rashes or lesions noted Neuro General: patient oriented x3 and moves all extremities Extrem General: Yes no pedal edema Results Reviewed Nephrology Results: Sodium 137 mmol/L (135-145) 09/25/24 Potassium 3.9 mmol/L (3.3-5.1) 09/25/24 Chloride 104 mmol/L (96-108) 09/25/24 Carbon Dioxide 25 mmol/L (22-29) 09/25/24 BUN 18 mg/dL (9-16) H 09/25/24 Creatinine 1.75 mg/dL (0.5-1.4) H 09/25/24 Urine Creatinine 171.43 mg/dL 09/25/24 Protein/Creatinin Ratio 0.33 (<0.2) H 09/25/24 Assessment & Plan Assessment & Plan (1) CKD (chronic kidney disease) stage 3, GFR 30-59 ml/min: Code(s): N18.30 - Chronic kidney disease, stage 3 unspecified Category: Medical Qualifiers: Chronic kidney disease stage 3 subtype: stage 3a (GFR 45-59) Qualified Code(s): N18.31 - Chronic kidney disease, stage 3a (2) Essential (primary) hypertension: Code(s): I10 - Essential (primary) hypertension Category: Medical Plan Sera has longstanding hypertension and 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 Her blood pressure is at goal. She was encouraged to keep up with a low-sodium diet, maintain good hydration and avoid nonsteroidal anti-inflammatories. She should continue torsemide 20 mg every day. Her past renal ultrasound did not show any obstruction but just renal cyst. I started her on Jardiance 10 mg today. If her renal function is stable , I plan to start her on lisinopril 2.5 mg daily at next visit. I have ordered blood work in follow-up. Follow-up appointment given. Orders: Orders Blood Urea Nitrogen 3 Months I10 - Essential (primary) hypertension, N18.31 - Chronic kidney disease, stage 3a Electrolytes 3 Months I10 - Essential (primary) hypertension, N18.31 - Chronic kidney disease, stage 3a Creatinine 3 Months I10 - Essential (primary) hypertension, N18.31 - Chronic kidney disease, stage 3a Medications: Refilled empagliflozin (Jardiance) 10 mg PO DAILY 30 tabs 3RF Coding Level of Care Code Est Pt Level 4 (71904) Diagnoses Stage 3a chronic kidney disease N18.31 Chronic kidney disease stage 3 subtype: stage 3a (GFR 45-59) Essential (primary) hypertension I10
[2024-10-03 10:22] VITALS: BP 124/80; PULSE 62; O2SAT 96; BMI 43.0
--- OUTSIDE RECORDS SUMMARY | 2024-10-03 10:58 | XMS_ITS | Clinical Summary ---
Author Organization [facility] Address [address] [place] [address] Care Team Providers Care Supplemental Nurse Name Role Phone Unavailable Primary Care Provider Unavailabl e Social History Tobacco Use Types Packs/Day Years Used Date Smoking Tobacco: Never Assessed Comments Unknown Sex and Gender Information Value Date Recorded Sex Assigned at Not on file Legal Sex Female 1:33 AM EST Gender Identity Not on file Sexual Orientation Not on file Plan of Treatment Health Maintenance Due Date Last Done Comments DTaP,Tdap,and Td Vaccines (1 - Tdap) 1971 Pneumococcal Vaccine: 50+ Ye ars (1 of 1 - PCV) 2002 Zoster Vaccines (1 of 2) 2002 Colorectal Cancer Screening: Colonoscopy 07/24/2022 Depression Screening 07/24/2022 Falls Risk Assessment 07/24/2022 Hepatitis C Screening 07/24/2022 Osteoporosis Screening (Bone Density Screening) 07/24/2022 Social Influencers of Health Screening 07/24/2022 Breast Cancer Screening 01/08/2023 01/08/2021 COVID-19 Vaccine ( - 2023-2 5 season) 2024 Influenza Vaccine (#1) 2024 RSV Immunization Patients 60 + Years Old (1 - 1-dose 75+ series) 2027 HIB Vaccines Aged Out No longer eligi ble based on patient's age to complete this topic HPV Vaccines Aged Out No longer eligi ble based on patient's age to complete this topic Hepatitis A Vaccines Aged Out No long er eligible based on patient's age to complete this topic Hepatitis B Vaccines Aged Out No long er eligible based on patient's age to complete this topic IPV Vaccines Aged Out No longer eligi ble based on patient's age to complete this topic MMR Vaccines Aged Out No longer eligi ble based on patient's age to complete this topic Meningococcal ACWY Vaccine Aged Out N o longer eligible based on patient's age to complete this topic Meningococcal B Vacine Aged Out No lo nger eligible based on patient's age to complete this topic RSV Immunization Patients Un ayanna 20 months Aged Out No longer eligible b ased on patient's age to complete this topic Varicella Vaccines Aged Out No longer eligible based on patient's age to complete this topic Procedures Procedure Name Priority Date/Time Associated Diagnosis Comments [facility] SCREENING DIGITAL Routine 01/08/2021 2:51 PM EDT Encounter for screening mammogram for malignant neoplasm of breast from Last 3 Months or Most Recently Relevant to Health Maintenance Results * DEBBIE SCREENING DIGITAL (01/08/2021 2:51 PM EDT) Anatomical Region Laterality Modality Mammography 01/08/2021 2:06 PM EDT Narrative 01/08/2021 2:51 PM EDT [facility] Diagnostic Imaging Department [address] [place], [place] [id number] Patient: ??ZAIRA CORBIN ?/Age/Sex: 1950 - F Unit#: ??[id number] ? Location/Status: ??SPDIMAM/REG CLI ? Mnemonic/Ordering Site: ??DIGSC/SPMAM Ordering Physician: ??ISH ROBIN MD Debbie Screening Digital - 01/08/21 - 1435 EXAM: [facility] Screening Digital EXAM DATE AND TIME: 01/08/2021 2:36 PM HISTORY: ??Screening. Left breast biopsy in 2017, pathology benign (organizing fat necrosis). COMPARISON: ??11/22/16, 10 5014, 02/20/13 TECHNIQUE: CC and MLO views of both breasts were obtained using full field digital mammography. Bilateral digital breast tomosynthesis was performed in the MLO projection. Computer aided detection with the [employer] was employed. TISSUE DENSITY: b. There are scattered areas of fibroglandular density. FINDINGS: No suspicious masses, grouped microcalcifications, or areas of architectural distortion are seen. A biopsy marker is now seen in the lower inner quadrant of the left breast, adjacent to a 4 mm residual nodule (11 mm on the prebiopsy mammogram). A small group of coarse, benign calcifications in the medial right breast, middle depth, remains stable. Minimal vascular calcification is present. The skin is unremarkable. IMPRESSION: No mammographic evidence of malignancy is seen. A negative mammogram in the presence of a clinically suspicious palpable abnormality does not preclude the possibility of malignancy or alter the indications for biopsy. BI-RADS: ??Category 2: Benign RECOMMENDATION(S): 1: Routine screening mammogram BILATERAL in 1 year. 62301, [id number] 3342F, 7025F Dictating Physician: ??AMPARO PALMER MD Electronically Signed by: ??AMPARO PALMER MD Dic Date/Time: ??01/08/21 1449 Sign date/Time: ??01/08/21 1451 Procedure Note Amparo Palmer MD - 08/09/2022 [facility] Diagnostic Imaging Department [address] [place] [id number] Patient: ZAIRA CORBIN /Age/Sex: 1950 - 70 - F Unit#: [id number] Location/Status: SPDIMAM/REG CLI Mnemonic/Ordering Site: [facility] Ordering Physician: ISH ROBIN MD [facility] Screening Digital - 01/08/21 - 1435 EXAM: [facility] Screening Digital EXAM DATE AND TIME: 01/08/2021 2:36 PM HISTORY: Screening. Left breast biopsy in 2017, pathology benign(organizing fat necrosis). COMPARISON: 11/22/16, 10 5014, 02/20/13 TECHNIQUE: CC and MLO views of both breasts were obtained using fullfield digital mammography. Bilateral digital breast tomosynthesis was performedin the MLO projection. Computer aided detection with the [employer] employed. TISSUE DENSITY: b. There are scattered areas of fibroglandular density. FINDINGS: No suspicious masses, grouped microcalcifications, or areas ofarchitectural distortion are seen. A biopsy marker is now seen in the lower innerquadrant of the left breast, adjacent to a 4 mm residual nodule (11 mm on theprebiopsy mammogram). A small group of coarse, benign calcifications in the medialright breast, middle depth, remains stable. Minimal vascular calcification is present. The skin is unremarkable. IMPRESSION: No mammographic evidence of malignancy is seen. A negative mammogram in the presence of a clinically suspicious palpable abnormality does not preclude the possibility of malignancy or alter the indications for biopsy. BI-RADS: Category 2: Benign RECOMMENDATION(S): 1: Routine screening mammogram BILATERAL in 1 year. 11548, 55954 3342F, 7030F Dictating Physician: AMPARO PALMER MD Electronically Signed by: AMPARO PALMER MD Dic Date/Time: 01/08/21 1449 Sign date/Time: 01/08/21 1454 Ish Robin MD IMG BI PROCEDURES Final Result from Last 3 Months or Most Recently Relevant to Health Maintenance
--- OUTSIDE RECORDS SUMMARY | 2024-10-03 10:58 | XMS_ITS | Clinical Summary ---
Author Organization [facility] Address [address] [address] Phone Care Team Providers Care Wheelchair Van Operator First Responder Name Role Phone Alexy Pendleton MD Primary Care Provider [phone] Allergies Active Allergy Reactions Criticality Noted Date Comments Egg-Derived Products Rash Low 01/31/2023 Iodinated Contrast Media 01/31/2023 Other reaction(s): OBRIEN, Hives, Pruritis Unlcear what sort of dye it was. This is per patient Hx Medications aspirin 81 MG chewable tablet Chew 81 mg 1 (one) time each day Active atorvastatin (LIPITOR) 40 MG tablet Take 40 mg by mouth 1 (one) time each day Active amLODIPine (NORVASC) 5 MG tablet Take 5 mg by mouth 1 (one) time each day Active metoprolol succinate XL (TOPROL-XL) 100 MG 24 hr tablet Take 150 mg by mouth 1 (one) time each day Do not crush or chew. Active sertraline (ZOLOFT) 100 MG tablet Take 150 mg by mouth 1 (one) time each day Active Ferrous Sulfate ER (Slow Fe) 142 (45 Fe) MG tablet controlled-rele ase Take 1 tablet by mouth 1 (one) time each day Active levothyroxine (SYNTHROID, LEVOTHROID) 125 MCG tablet Take 125 mcg by mouth 1 (one) time each day Active lisinopril 40 MG tablet Take 40 mg by mouth 1 (one) time each day Active predniSONE (DELTASONE) 20 MG tablet Take 20 mg by mouth 1 (one) time each day 06/27/2022 Active albuterol HFA (PROVENTIL HFA;VENTOLIN HFA) 108 (90 Base) MCG/ACT inhaler Inhale 2 puffs every 4 (four) to 6 (six) hours if needed 01/11/2023 Active Trelegy Ellipta 100-62.5-25 MCG/ACT aerosol powder INHALE 1 PUFF BY MOUTH EVERY DAY AT THE SAME TIME EACH DAY 01/11/2023 Active torsemide (DEMADEX) 20 MG tablet Take 1-2 tablets by mouth 1 (one) time each day 12/01/2022 Active insulin glargine (Basaglar KwikPen) 100 UNIT/ML injection Inject under the skin every night Active Active Problems Problem Noted Date Diagnosed Date Chronic osteoarthritis 01/31/2023 Graves' disease 01/31/2023 Hypercholesterolemia 01/31/2023 Severe obesity 01/31/2023 Type 2 diabetes mellitus 01/31/2023 Chronic kidney disease 06/07/2021 Hypertension 06/07/2021 Stage 3a chronic kidney disease 06/07/2021 Recurrent major depressive episodes 04/02/2010 Immunizations Name Administration Dates Next Due Influenza Whole 10/13/2010 Pfizer SARS-COV-2 05/12/2021,04/21/2021 Pneumococcal Polysaccharide 09/03/2003 Td, Unspecified 11/23/2005 Family History Medical History Relation Comments Cancer Brother Diabetes Brother Cancer Father Heart disease Mother Hypertension Mother Stroke Mother Cancer Sister Diabetes Sister Hypertension Sister Kidney disease Sister Relation Status Comments Brother Father Mother Sister Social History Tobacco Use Types Packs/Day Years Used Date Smoking Tobacco: Never Smokeless Tobacco: Never Tobacco Cessation:Counseling Given: Not Answered Alcohol Use Standard Drinks/Week Comments Never 0 (1 standard drink = 0.6 oz pur e alcohol) Comments Unknown Sex and Gender Information Value Date Recorded Sex Assigned at Not on file Legal Sex Female 9:44 AM EDT Gender Identity Not on file Sexual Orientation Not on file Last Filed Vital Signs Vital Sign Reading Time Taken Comments Blood Pressure 110/74 01/31/2023 3:01 PM EDT Pulse 67 01/31/2023 3:01 PM EDT Temperature - - Respiratory Rate - - Oxygen Saturation 95% 06/07/2021 1:10 PM EDT Inhaled Oxygen Concentration - - Weight 111 kg (244 lb 12.8 oz) 01/31/2023 3:01 P M EDT Height - - Body Mass Index - - Plan of Treatment Health Maintenance Due Date Last Done Comments Breast Cancer Screening 1950 Colorectal Cancer Screening: Annual FOBT 2001 Colorectal Cancer Screening: Colonoscopy 2001 Colorectal Cancer Screening: Sigmoidoscopy 2001 Pneumococcal Vaccine: 65+ Ye ars (2 of 2 - PCV) 09/03/2004 09/03/2003 Diabetes: Hemoglobin A1C 01/31/2023 Diabetes: Ophthalmology Exam 01/31/2023 Diabetes: Pedal Pulse Checked 01/31/2023 Diabetes: Sensory Foot Exam 01/31/2023 Diabetes: Visual Foot Exam 01/31/2023 Influenza Vaccine (#1) 2024 10/13/2010 Hepatitis B Vaccine Aged Out No longe r eligible based on patient's age to complete this topic Insurance MEDICARE [facility] MEDICARE [facility] Care Teams Wheelchair Van Operator First Responder Relationship Specialty Start Date End Date Alexy Pendleton MD [address] [place] [phone] PCP - General Internal Medicine 06/07/21
== END 2024-10-03 10:40 | disposition home or self-care (01) ==
PROVIDERS: PCP Internal Medicine; Visit Provider Internal Medicine Nephrology
DX: N18.31 Chronic kidney disease, stage 3a (principal); I10 Essential (primary) hypertension
CPT/HCPCS: 99214

== ENCOUNTER → 2024-10-03 10:13 | Outpatient (BNVA) | payer MEDICARE, SELFPAY | PROVIDERS: PCP Internal Medicine; Visit Provider Internal Medicine Nephrology | DX: I12.9 Hypertensive chronic kidney disease with stage 1 through stage 4 chronic kidney disease, or unspecified chronic kidney disease (principal); N18.31 Chronic kidney disease, stage 3a | CPT/HCPCS: 99212 ==

== ENCOUNTER 2024-12-24 10:45 | Outpatient (REF) | payer MEDICARE, SELFPAY ==
--- OUTSIDE RECORDS SUMMARY | 2024-12-24 12:26 | XMS_ITS | Clinical Summary ---
Author Organization [facility] Address [address] [address] Phone Care Team Providers Care Branch Chief Name Role Phone Alexy Pendleton MD Primary Care Provider Allergies Active Allergy Reactions Criticality Noted Date [...] 06/07/2021 Recurrent major depressive episodes 04/02/2010 Immunizations Immunization Administration Dates Next Due Influenza Whole 10/13/2010 [...] Colorectal Cancer Screening: Sigmoidoscopy 2001 Pneumococcal Vaccine: 50+ Ye ars (2 of 2 - PCV) 09/03/2004 09/03/2003 Diabetes: Hemoglobin A1C 01/31/2023 Diabetes: Ophthalmology Exam 01/31/2023 Diabetes: Pedal Pulse Checked 01/31/2023 Diabetes: Sensory Foot Exam 01/31/2023 Diabetes: Visual Foot Exam 01/31/2023 Influenza Vaccine (Season Ended) 2025 10/13/19 11 Hepatitis B Vaccine Aged Out No longe r eligible based on patient's age to complete this topic Insurance Medicare [facility] Medicare [facility] Care Teams Branch Chief Relationship Specialty Start Date End Date Alexy Pendleton MD [address] [place] [phone] PCP - General Internal Medicine 06/07/21
--- OUTSIDE RECORDS SUMMARY | 2024-12-24 12:26 | XMS_ITS | Clinical Summary ---
Author Organization [facility] Address [address] [place] [address] Care Team Providers Care [place] Dental Lab Technician Name Role Phone Unavailable Primary Care Provider [...] Breast Cancer Screening 01/08/2023 01/08/2021 COVID-19 Vaccine (2023-2 5 season) 2024 Influenza Vaccine (Season Ended) 2025 RSV Immunization Adult Patie nts (1 - 1-dose 75+ series) 2027 HIB [...] age to complete this topic Meningococcal B Vaccine Aged Out No l onger eligible based on patient's age to complete this topic RSV Immunization Patients Un ayanna 20 months Aged Out No longer eligible b ased on patient's age to complete this topic Varicella Vaccines Aged Out No longer eligible based on patient's age to complete this topic Procedures Procedure Name Priority Date/Time Associated Diagnosis Comments [facility] SCREENING DIGITAL Routine 01/08/2021 2:51 PM EDT Encounter for screening mammogram for malignant neoplasm of breast from Last 3 Months or Most Recently Relevant to Health Maintenance Results * DEBBIE SCREENING DIGITAL (01/08/2021 2:51 PM EDT) Anatomical Region Laterality Modality Mammography 01/08/2021 2:06 PM EDT Narrative 01/08/2021 2:51 PM EDT [facility] Diagnostic Imaging Department [address] [place] [address] Patient: ??ZAIRA CORBIN ?/Age/Sex: 1950 - 70 - F Unit#: ??[id number] ? Location/Status: ??SPDIMAM/REG CLI ? Mnemonic/Ordering Site: ??DIGSC/SPMAM Ordering Physician: ??ISH ROBIN MD Debbie Screening Digital - 01/08/21 - 1435 EXAM: [facility] Screening Digital EXAM DATE AND TIME: 01/08/2021 2:36 PM HISTORY: ??Screening. Left breast biopsy in 2017, pathology benign (organizing fat necrosis). COMPARISON: ??11/22/16, 10 5014, 02/20/13 TECHNIQUE: CC and MLO views of both breasts were obtained using full field digital mammography. Bilateral digital breast tomosynthesis was performed in the MLO projection. Computer aided detection with the [employer].2-Nipendo was employed. TISSUE DENSITY: b. There are [...] Routine screening mammogram BILATERAL in 1 year. 75898, 19166 3342F, 7025F Dictating Physician: ??AMPARO PALMER MD Electronically Signed by: ??AMPARO PALMER MD Dic Date/Time: ??01/08/21 1449 Sign date/Time: ??01/08/21 1451 Procedure Note Amparo Palmer MD - 08/09/2022 [facility] Diagnostic Imaging Department [address] [place] [address] [id number] Patient: ZAIRA CORBIN /Age/Sex: 1950 - 70 - F Unit#: [id number] Location/Status: SPDIMAM/REG CLI Mnemonic/Ordering Site: [facility] Ordering Physician: ISH ROBIN MD [facility] Screening Digital - 01/08/21 - 1435 EXAM: [facility] Screening Digital EXAM DATE AND TIME: 01/08/2021 2:36 PM HISTORY: Screening. Left breast biopsy in 2017, pathology benign(organizing fat necrosis). COMPARISON: 11/22/16, 10 5014, 02/20/13 TECHNIQUE: CC and MLO views of both breasts were obtained using fullfield digital mammography. Bilateral digital breast tomosynthesis was performedin the MLO projection. Computer aided detection with the [employer] 7.2-[employer] Beverage[employer] employed. TISSUE DENSITY: b. There are scattered [...] Routine screening mammogram BILATERAL in 1 year. 76693, 30104 3342F, 7025F Dictating Physician: AMPARO PALMER MD Electronically Signed by: AMPARO PALMER MD Dic Date/Time: 01/08/21 1449 Sign date/Time: 01/08/21 1452 Ish Robin MD IMG BI PROCEDURES Final Result from Last 3 Months or Most Recently Relevant to Health Maintenance
[2024-12-24 18:06] LABS: Anion Gap 17 (12-20); Blood Urea Nitrogen 30 mg/dL (9-16); Carbon Dioxide 21 mmol/L (22-29); Chloride 107 mmol/L (96-108); Estimated Glomerular Filt Rate 30; Potassium 4.3 mmol/L (3.3-5.1); Sodium 141 mmol/L (135-145)
== END 2024-12-24 10:46 | disposition home or self-care (01) ==
LOC: HO.HKASLDS 10:45
PROVIDERS: Visit Provider Internal Medicine Nephrology
DX: N18.31 Chronic kidney disease, stage 3a (principal); I10 Essential (primary) hypertension
CPT/HCPCS: 36415; 80051; 82565; 84520

== ENCOUNTER 2025-01-02 11:05 | Outpatient (AMB) | payer MEDICARE, SELFPAY ==
--- NOTE | 2025-01-02 11:15 | HO.NEPHOV ---
Vital Signs 01/02/25 11:16 Height 5 ft 3 in Weight 245 lb 8 oz BMI 43.5 BP 130/70 Blood Pressure Location Lt brachial Position Sitting Pulse 73 Pulse Source Pulse Oximeter Pulse Oximetry (%) 97 Oxygen Delivery Method Room Air Intake Visit Reasons: 3mon follow-up w/labs-LVM Snuff Maker Required: No Accompanied by: Self / Same As Patient Allergies Egg Derived Allergy (Verified 01/02/25 11:15) Unknown Iodinated Contrast Media Allergy (Verified 01/02/25 11:15) Unknown HPI Comments Details: Sera was seen in follow-up of her chronic kidney disease on a background of hypertension. She has history of longstanding hypertension for close to 25 years. She had been on prednisone for her rheumatological disorders. Her blood sugar control is stable. She has been on LANE-inhibitor. She denies any chest pain, proximal nocturnal dyspnea, orthopnea or orthostatic symptoms. She is known to have proteinuria. Her oldest sister has [facility] of [facility]D [facility] Medical History Lipoma of neck Hyperlipidemia Malaise and fatigue Iron deficiency anemia Hypothyroidism Essential (primary) hypertension Type 2 diabetes mellitus Surgical History Status post excision of lipoma (~11/29/23) Hx of laparoscopic gastric banding History of hysterectomy Family History Mother Hypertension Stroke Heart disease Father Cancer Sister Cancer Diabetes Hypertension Kidney disease Brother Cancer Diabetes Social History Alcohol intake: never Patient Tobacco Use Status: Never used Tobacco Review of Systems Const All systems reviewed & are unremarkable except as noted in HPI and below Physical Exam Vital Signs: Last Vital Signs Pulse 73 01/02/25 11:16 BP 130/70 01/02/25 11:16 Pulse Ox 97 01/02/25 11:16 Oxygen Delivery Method Room Air 01/02/25 11:16 BMI result Body Mass Index 43.5 Const General: comfortable and no acute distress Orientation/consciousness: patient oriented x3 HEENT Head: Yes normocephalic Mouth: Normal oral and palatal mucosa present Eyes EOM: EOMs intact bilaterally Neck Neck: Yes supple Resp Auscultation: clear to auscultation bilaterally Cardio Jugular venous distension: no JVD Rate: regular rate GI Palpation (GI): Soft to palpation Auscultation: normal bowel sounds General: Yes no CVA tenderness Back/Spine/Pelvis Back: no CVA tenderness Skin General skin exam: no rashes or lesions noted Neuro General: patient oriented x3 and moves all extremities Extrem General: Yes no pedal edema Results Reviewed Nephrology Results: Sodium 141 mmol/L (135-145) 12/24/24 Potassium 4.3 mmol/L (3.3-5.1) 12/24/24 Chloride 107 mmol/L (96-108) 12/24/24 Carbon Dioxide 21 mmol/L (22-29) L 12/24/24 BUN 30 mg/dL (9-16) H 12/24/24 Creatinine 1.67 mg/dL (0.5-1.4) H 12/24/24 Urine Creatinine 171.43 mg/dL 09/25/24 Protein/Creatinin Ratio 0.33 (<0.2) H 09/25/24 Assessment & Plan Assessment & Plan (1) CKD (chronic kidney disease) stage 3, GFR 30-59 ml/min: Code(s): N18.30 - Chronic kidney disease, stage 3 unspecified Category: Medical Qualifiers: Chronic kidney disease stage 3 subtype: stage 3a (GFR 45-59) Qualified Code(s): N18.31 - Chronic kidney disease, stage 3a (2) Essential (primary) hypertension: Code(s): I10 - Essential (primary) hypertension Category: Medical Plan Sera has longstanding hypertension and 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 Her blood pressure is at goal. She was encouraged to keep up with a low-sodium diet, maintain good hydration and avoid nonsteroidal anti-inflammatories. She should continue torsemide 20 mg every other day. Her past renal ultrasound did not show any obstruction but just renal cyst. She could not afford Jardiance 10 mg . If her renal function is stable , I plan to start her on lisinopril 2.5 mg with time. I have ordered blood work in follow-up. Follow-up appointment given. Orders: Orders Creatinine 4 Months I10 - Essential (primary) hypertension, N18.31 - Chronic kidney disease, stage 3a Blood Urea Nitrogen 4 Months I10 - Essential (primary) hypertension, N18.31 - Chronic kidney disease, stage 3a Electrolytes 4 Months I10 - Essential (primary) hypertension, N18.31 - Chronic kidney disease, stage 3a Medications: Discontinued empagliflozin (Jardiance) Discontinued Reason: Doctor's Order 10 mg PO DAILY 30 tabs 3RF Coding Level of Care Code Est Pt Level 4 (93444) Diagnoses Stage 3a chronic kidney disease N18.31 Chronic kidney disease stage 3 subtype: stage 3a (GFR 45-59) Essential (primary) hypertension I10
[2025-01-02 11:16] VITALS: BP 130/70; PULSE 73; O2SAT 97; BMI 43.5
--- OUTSIDE RECORDS SUMMARY | 2025-01-02 12:18 | XMS_ITS | Clinical Summary ---
Author Organization [facility] Address [address] [place] [address] Care Team Providers Care Pipe Fitter Supervisor Name Role Phone Unavailable Primary Care Provider [...] - 2023-2 5 season) 2024 Influenza Vaccine (Season Ended) [...] Procedure Name Priority Date/Time Associated Diagnosis Comments [facility] SCREENING DIGITAL Routine 01/08/2021 2:51 PM EDT Encounter for screening mammogram for malignant neoplasm of breast from Last 3 Months or Most Recently Relevant to Health Maintenance Results * DEBBIE SCREENING DIGITAL (01/08/2021 2:51 PM EDT) Anatomical Region Laterality Modality Mammography 01/08/2021 2:06 PM EDT Narrative 01/08/2021 2:51 PM EDT [facility] Diagnostic Imaging Department [address] [place] [address] Patient: ??ZAIRA CORBIN ?/Age/Sex: 1950 - 70 - F Unit#: ??[id number] ? Location/Status: ??SPDIMAM/REG CLI ? Mnemonic/Ordering Site: ??DIGSC/SPMAM Ordering Physician: ??ISH ROBIN MD Debbie Screening Digital - 01/08/21 - 1435 EXAM: [facility] Screening Digital EXAM DATE AND TIME: 01/08/2021 2:36 PM HISTORY: ??Screening. Left breast biopsy in 2017, pathology benign (organizing fat necrosis). COMPARISON: ??11/22/16, 10 5014, 02/20/13 TECHNIQUE: CC and MLO views of both breasts were obtained using full field digital mammography. Bilateral digital breast tomosynthesis was performed in the MLO projection. Computer aided detection with the [employer] was employed. TISSUE DENSITY: b. There are [...] Routine screening mammogram BILATERAL in 1 year. 05911, 37800 3342F, 7025F Dictating Physician: ??AMPARO PALMER MD Electronically Signed by: ??AMPARO PALMER MD Dic Date/Time: ??01/08/21 1449 Sign date/Time: ??01/08/21 1451 Procedure Note Amparo Palmer MD - 08/09/2022 [facility] Diagnostic Imaging Department [address] [place] [address] [id number] Patient: ZAIRA CORBIN /Age/Sex: 1950 - 70 - F Unit#: [id number] Location/Status: SPDIMAM/REG CLI Mnemonic/Ordering Site: [facility] Ordering Physician: ISH ROBIN MD [facility] Screening Digital - 01/08/21 - 1435 EXAM: [facility] Screening Digital EXAM DATE AND TIME: 01/08/2021 2:36 PM HISTORY: Screening. Left breast biopsy in 2017, pathology benign(organizing fat necrosis). COMPARISON: 11/22/16, 10 5014, 02/20/13 TECHNIQUE: CC and MLO views of both breasts were obtained using fullfield digital mammography. Bilateral digital breast tomosynthesis was performedin the MLO projection. Computer aided detection with the [employer] 7.2-FiPathas employed. TISSUE DENSITY: b. There are scattered [...] Routine screening mammogram BILATERAL in 1 year. 48001, 30729 3342F, 7025F Dictating Physician: AMPARO PALMER MD Electronically Signed by: AMPARO PALMER MD Dic Date/Time: 01/08/21 1449 Sign date/Time: 01/08/21 1457 Ish Robin MD IMG BI PROCEDURES Final Result from Last 3 Months or Most Recently Relevant to Health Maintenance
--- OUTSIDE RECORDS SUMMARY | 2025-01-02 12:18 | XMS_ITS | Clinical Summary ---
Author Organization [facility] Address [address] [address] Phone Care Team Providers Care Mechanic Driver Name Role Phone Alexy Pendleton MD Primary [...] age to complete this topic Insurance Medicare [facility] Medicare [facility] Care Teams Mechanic Driver Relationship Specialty Start Date End Date Aleyx Pendleton MD [address] [place] [phone] PCP - General Internal Medicine 06/07/21
== END 2025-01-02 11:38 | disposition home or self-care (01) ==
LOC: HO.HKAS 11:05
PROVIDERS: PCP Internal Medicine; Visit Provider Internal Medicine Nephrology
DX: N18.31 Chronic kidney disease, stage 3a (principal); I10 Essential (primary) hypertension
CPT/HCPCS: 99214

== ENCOUNTER → 2025-01-02 11:05 | Outpatient (BNVA) | payer MEDICARE, SELFPAY | PROVIDERS: PCP Internal Medicine; Visit Provider Internal Medicine Nephrology | DX: I12.9 Hypertensive chronic kidney disease with stage 1 through stage 4 chronic kidney disease, or unspecified chronic kidney disease (principal); N18.31 Chronic kidney disease, stage 3a | CPT/HCPCS: 99212 ==

== ENCOUNTER 2025-04-30 11:48 | Outpatient (REF) | payer MEDICARE, SELFPAY ==
--- OUTSIDE RECORDS SUMMARY | 2025-04-30 15:02 | XMS_ITS | Clinical Summary ---
Author Organization [facility] Address [address] [place] [address] Care Team Providers Care Industrial Gas Service Helper Name Role Phone Unavailable Primary Care Provider [...] 2) 2002 Colorectal Cancer Screening: Colonoscopy 07/24/2022 Falls Risk Assessment 07/24/2022 Hepatitis C Screening 07/24/2022 Osteoporosis Screening (Bone Density Screening) 07/24/2022 Social Influencers of Health Screening 07/24/2022 Breast Cancer Screening 01/08/2023 01/08/2021 Depression Screening 08/21/2024 COVID-19 Vaccine ( - 2023-2 5 season) 2025 Influenza Vaccine (#1) 2025 RSV Immunization Adult Patie nts (1 [...] Procedure Name Priority Date/Time Associated Diagnosis Comments [facility] SCREENING DIGITAL Routine 01/08/2021 2:51 PM EDT Encounter for screening mammogram for malignant neoplasm of breast from Last 3 Months or Most Recently Relevant to Health Maintenance Results * [facility] SCREENING DIGITAL (01/08/2021 2:51 PM EDT) Anatomical Region Laterality Modality Mammography 01/08/2021 2:06 PM EDT Narrative 01/08/2021 2:51 PM EDT [facility] Diagnostic Imaging Department [address] [place] [address] Patient: ZAIRA CORBIN /Age/Sex: 1950 - 70 - F Unit#: [id number] Location/Status: [facility]/REG CLI Mnemonic/Ordering Site: [facility] Ordering Physician: ISH ROBIN MD Debbie Screening Digital - 01/08/21 - 1435 EXAM: [facility] Screening Digital EXAM DATE AND TIME: 01/08/2021 2:36 PM HISTORY: Screening. Left breast biopsy in 2017, pathology benign (organizing fat necrosis). COMPARISON: 11/22/16, 10 5014, 02/20/13 TECHNIQUE: CC and MLO views of both breasts were obtained using full field digital mammography. Bilateral digital breast tomosynthesis was performed in the MLO projection. Computer aided detection with the [employer] 7.2-H was employed. TISSUE DENSITY: b. There are [...] Routine screening mammogram BILATERAL in 1 year. 10905, 93521 3342F, 7025F Dictating Physician: AMPARO PALMER MD Electronically Signed by: AMPARO PALMER MD Dic Date/Time: 01/08/21 1449 Sign date/Time: 01/08/21 1451 Procedure Note Amparo Palmer MD - 08/09/2022 [facility] Diagnostic Imaging Department [address] [place] [address] Patient: ZAIRA CORBIN /Age/Sex: 1950 - 70 - F Unit#: [id number] Location/Status: [facility]/REG CLI Mnemonic/Ordering Site: DIGSC/SPMAM Ordering Physician: ISH ROBIN MD [facility] Screening Digital - 01/08/21 - 1435 EXAM: [facility] Screening Digital EXAM DATE AND TIME: 01/08/2021 2:36 PM HISTORY: Screening. Left breast biopsy in 2017, pathology benign(organizing fat necrosis). COMPARISON: 11/22/16, 10 5014, 02/20/13 TECHNIQUE: CC and MLO views of both breasts were obtained using fullfield digital mammography. Bilateral digital breast tomosynthesis was performedin the MLO projection. Computer aided detection with the [employer] 7.2-Xceliantas employed. TISSUE DENSITY: b. There are scattered [...] Routine screening mammogram BILATERAL in 1 year. 04825, 22591 3342F, 7025F Dictating Physician: AMPARO PALMER MD Electronically Signed by: AMPARO PALMER MD Dic Date/Time: 01/08/21 1449 Sign date/Time: 01/08/21 1451 Ish Robin MD IMG BI PROCEDURES Final Result from Last 3 Months or Most Recently Relevant to Health Maintenance
--- OUTSIDE RECORDS SUMMARY | 2025-04-30 15:02 | XMS_ITS | Clinical Summary ---
Author Organization [facility] Address [address] [address] Phone Care Team Providers Care Hardwood Finisher Name Role Phone Alexy Pendleton MD Primary [...] Visual Foot Exam 01/31/2023 Influenza Vaccine (#1) 2025 10/13/2010 Hepatitis B Vaccine Aged Out No longe r eligible based on patient's age to complete this topic Insurance Medicare [facility] Medicare [facility] Care Teams Hardwood Finisher Relationship Specialty Start Date End Date Alexy Pendleton MD [address] [place] [phone] PCP - General Internal Medicine 06/07/21
[2025-04-30 18:40] LABS: Anion Gap 15 (12-20); Blood Urea Nitrogen 17 mg/dL (9-16); Carbon Dioxide 25 mmol/L (22-29); Chloride 103 mmol/L (96-108); Estimated Glomerular Filt Rate 33; Potassium 4.0 mmol/L (3.3-5.1); Sodium 139 mmol/L (135-145)
== END 2025-04-30 11:49 | disposition home or self-care (01) ==
LOC: HO.HKASLDS 11:48
PROVIDERS: Visit Provider Internal Medicine Nephrology
DX: I12.9 Hypertensive chronic kidney disease with stage 1 through stage 4 chronic kidney disease, or unspecified chronic kidney disease (principal); N18.31 Chronic kidney disease, stage 3a
CPT/HCPCS: 36415; 80051; 82565; 84520

== ENCOUNTER 2025-05-08 11:22 | Outpatient (AMB) | payer MEDICARE, SELFPAY ==
--- NOTE | 2025-05-08 11:43 | HO.NEPHOV ---
Vital Signs 05/08/25 11:44 Height 5 ft 3 in Weight 251 lb 6 oz BMI 44.5 BP 118/80 Blood Pressure Location Lt brachial Position Sitting Pulse 70 Pulse Source Pulse Oximeter Pulse Oximetry (%) 96 Oxygen Delivery Method Room Air Intake Visit Reasons: 4mon follow-up w/labs-Conf Surgeon/President Required: No Accompanied by: Self / Same As Patient Allergies Egg Derived Allergy (Verified 05/08/25 11:44) Unknown Iodinated Contrast Media Allergy (Verified 05/08/25 11:44) Unknown HPI Comments Details: Sera was seen in follow-up of her chronic kidney disease on a background of hypertension. She has history of longstanding hypertension for close to 25 years. She had been on prednisone for her rheumatological disorders. Her blood sugar control is stable. She has been on LANE-inhibitor. She denies any chest pain, proximal nocturnal dyspnea, orthopnea or orthostatic symptoms. She is known to have proteinuria. Her oldest sister has history of ESRD PFSH Medical History Lipoma of neck Hyperlipidemia Malaise and fatigue Iron deficiency anemia Hypothyroidism Essential (primary) hypertension Type 2 diabetes mellitus Surgical History Status post excision of lipoma (~11/29/23) Hx of laparoscopic gastric banding History of hysterectomy Family History Mother Hypertension Stroke Heart disease Father Cancer Sister Cancer Diabetes Hypertension Kidney disease Brother Cancer Diabetes Social History Alcohol intake: never Patient Tobacco Use Status: Never used Tobacco Review of Systems Const All systems reviewed & are unremarkable except as noted in HPI and below Physical Exam Vital Signs: Last Vital Signs Pulse 70 05/08/25 11:44 BP 118/80 05/08/25 11:44 Pulse Ox 96 05/08/25 11:44 Oxygen Delivery Method Room Air 05/08/25 11:44 BMI result Body Mass Index 44.5 Const General: comfortable and no acute distress Orientation/consciousness: patient oriented x3 HEENT Head: Yes normocephalic Mouth: Normal oral and palatal mucosa present Eyes EOM: EOMs intact bilaterally Neck Neck: Yes supple Resp Auscultation: clear to auscultation bilaterally Cardio Jugular venous distension: no JVD Rate: regular rate GI Palpation (GI): Soft to palpation Auscultation: normal bowel sounds General: Yes no CVA tenderness Back/Spine/Pelvis Back: no CVA tenderness Skin General skin exam: no rashes or lesions noted Neuro General: patient oriented x3 and moves all extremities Extrem General: Yes no pedal edema Results Reviewed Nephrology Results: Sodium, (135-145) 139 mmol/L 04/30/25 Potassium, (3.3-5.1) 4.0 mmol/L 04/30/25 Chloride, (96-108) 103 mmol/L 04/30/25 Carbon Dioxide, (22-29) 25 mmol/L 04/30/25 BUN, (9-16) 17 mg/dL H 04/30/25 Creatinine, (0.5-1.4) 1.55 mg/dL H 04/30/25 Urine Creatinine 171.43 mg/dL 09/25/24 Protein/Creatinin Ratio, (<0.2) 0.33 H 09/25/24 Assessment & Plan Assessment & Plan (1) Essential (primary) hypertension: Code(s): I10 - Essential (primary) hypertension Category: Medical (2) CKD (chronic kidney disease) stage 3, GFR 30-59 ml/min: Code(s): N18.30 - Chronic kidney disease, stage 3 unspecified Category: Medical Qualifiers: Chronic kidney disease stage 3 subtype: stage 3a (GFR 45-59) Qualified Code(s): N18.31 - Chronic kidney disease, stage 3a Claus Zamora has longstanding hypertension and 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 Her blood pressure is at goal. Her renal function is close to baseline now. She was encouraged to keep up with a low-sodium diet, maintain good hydration and avoid nonsteroidal anti-inflammatories. She should continue torsemide 20 mg every other day. Her past renal ultrasound did not show any obstruction but just renal cyst. She could not afford Jardiance 10 mg . If her renal function is stable , I plan to start her on lisinopril 2.5 mg with time. I have ordered blood work in follow-up. Follow-up appointment given. Orders: Orders Calcium 4 Months I10 - Essential (primary) hypertension, N18.31 - Chronic kidney disease, stage 3a Parathyroid Hormone Intact 4 Months I10 - Essential (primary) hypertension, N18.31 - Chronic kidney disease, stage 3a Protein Creatinine Ratio, Ur 4 Months I10 - Essential (primary) hypertension, N18.31 - Chronic kidney disease, stage 3a Creatinine 4 Months I10 - Essential (primary) hypertension, N18.31 - Chronic kidney disease, stage 3a Blood Urea Nitrogen 4 Months I10 - Essential (primary) hypertension, N18.31 - Chronic kidney disease, stage 3a Electrolytes 4 Months I10 - Essential (primary) hypertension, N18.31 - Chronic kidney disease, stage 3a Vitamin D 25-OH Total 4 Months I10 - Essential (primary) hypertension, N18.31 - Chronic kidney disease, stage 3a Coding Level of Care Code Est Pt Level 4 (04465) Diagnoses Essential (primary) hypertension I10 Stage 3a chronic kidney disease N18.31 Chronic kidney disease stage 3 subtype: stage 3a (GFR 45-59)
[2025-05-08 11:44] VITALS: BP 118/80; PULSE 70; O2SAT 96; BMI 44.5
--- OUTSIDE RECORDS SUMMARY | 2025-05-08 13:38 | XMS_ITS | Clinical Summary ---
Author Organization [facility] Address [address] [place] [address] Care Team Providers Care Information Strategist Name Role Phone Unavailable Primary Care Provider [...] Procedure Name Priority Date/Time Associated Diagnosis Comments [facility] SCREENING DIGITAL Routine 01/08/2021 2:51 PM EDT Encounter for screening mammogram for malignant neoplasm of breast from Last 3 Months or Most Recently Relevant to Health Maintenance Results * [facility] SCREENING [facility]IGITAL (01/08/2021 2:51 PM EDT) Anatomical Region Laterality Modality Mammography 01/08/2021 2:06 PM EDT Narrative 01/08/2021 2:51 PM EDT [facility] Diagnostic Imaging Department [address] [place] [address] Patient: ZAIRA CORBIN /Age/Sex: 1950 - 70 - F Unit#: [id number] Location/Status: [facility]/REG CLI Mnemonic/Ordering Site: [facility] Ordering Physician: ISH ROBIN MD Debbie Screening Digital - 01/08/21 - 1435 EXAM: [facility] Screening Digital EXAM DATE AND TIME: 01/08/2021 2:36 PM HISTORY: Screening. Left breast biopsy in 2017, pathology benign (organizing fat necrosis). COMPARISON: 11/22/16, 10 5014, 02/20/13 TECHNIQUE: CC and MLO views of both breasts were obtained using full field digital mammography. Bilateral digital breast tomosynthesis was performed in the MLO projection. Computer aided detection with the [employer] 7.2-H was employed. TISSUE DENSITY: b. There [...] Routine screening mammogram BILATERAL in 1 year. 14776, 42172 3342F, 7025F Dictating Physician: AMPARO PALMER MD Electronically Signed by: AMPARO PALMER MD Dic Date/Time: 01/08/21 1449 Sign date/Time: 01/08/21 1451 Procedure Note Amparo Palmer MD - 08/09/2022 [facility] Diagnostic Imaging Department [address] [place] [address] Patient: ZAIRA CORBIN /Age/Sex: 1950 - 70 - F Unit#: [id number] Location/Status: [facility]/REG CLI Mnemonic/Ordering Site: [facility] Ordering Physician: ISH ROBIN MD [facility] Screening Digital - 01/08/21 - 1435 EXAM: [facility] Screening Digital EXAM DATE AND TIME: 01/08/2021 2:36 PM HISTORY: Screening. Left breast biopsy in 2017, pathology benign(organizing fat necrosis). COMPARISON: 11/22/16, 10 5014, 02/20/13 TECHNIQUE: CC and MLO views of both breasts were obtained using fullfield digital mammography. Bilateral digital breast tomosynthesis was performedin the MLO projection. Computer aided detection with the [employer] 7.2-CloudAppsas employed. TISSUE DENSITY: b. There are scattered [...] Routine screening mammogram BILATERAL in 1 year. 62530, 38672 3342F, 7025F Dictating Physician: AMPARO PALMER MD Electronically Signed by: AMPARO PALMER MD Dic Date/Time: 01/08/21 1449 Sign date/Time: 01/08/21 1451 Ish Robin MD IMG BI PROCEDURES Final Result from Last 3 Months or Most Recently Relevant to Health Maintenance
--- OUTSIDE RECORDS SUMMARY | 2025-05-08 13:38 | XMS_ITS | Clinical Summary ---
Author Organization [facility] Address [address] [address] Phone Care Team Providers Care Chief Knowledge Officer Name Role Phone Alexy Pendleton MD Primary Care Provider [phone] Allergies Active Allergy Reactions Criticality Noted Date [...] age to complete this topic Insurance Medicare [facility] Medicare [facility] Care Teams Chief Knowledge Officer Relationship Specialty Start Date End Date Alexy Pendleton MD [address] [place] [id number] PCP - General Internal Medicine 06/07/21
== END 2025-05-08 11:53 | disposition home or self-care (01) ==
LOC: HO.HKAS 11:22
PROVIDERS: PCP Internal Medicine; Visit Provider Internal Medicine Nephrology
DX: I10 Essential (primary) hypertension (principal); N18.31 Chronic kidney disease, stage 3a
CPT/HCPCS: 99214

== ENCOUNTER → 2025-05-08 11:22 | Outpatient (BNVA) | payer MEDICARE, SELFPAY | PROVIDERS: PCP Internal Medicine; Visit Provider Internal Medicine Nephrology | DX: I12.9 Hypertensive chronic kidney disease with stage 1 through stage 4 chronic kidney disease, or unspecified chronic kidney disease (principal); N18.31 Chronic kidney disease, stage 3a | CPT/HCPCS: 99212 ==